=== PATIENT | female | born 1985 | race Caucasian/White ===

== ENCOUNTER 2021-04-08 15:47 | Emergency (ER) | payer OTHER ==
[2021-04-08 17:12] LABS: BASOPHIL 0.5 % (0-2); EOSINOPHIL 1.1 % (0-5); HCT 42.5 % (37.0-47.0); HGB 13.6 g/dl (12.5-16.0); MCH 26.5 pg (25.0-31.0); MCV 82.7 fL (78.0-100.0); MPV 11.1 fL (6.0-9.5); NEUTROPHIL 61.1 % (41-80); NRBC 0; PLT 420 K/uL (150-400); RBC 5.14 M/uL (4.20-5.40); RDW 16.1 % (11.5-14.0)
[2021-04-08 17:18] LABS: INR 1.08 (0.9-1.2); PROTHROMBIN TIME 13.4 SECONDS (11.8-13.4); PTT 26.3 SECONDS (24.4-34.7)
[2021-04-08 17:24] LABS: ALBUMIN 3.3 g/dL (3.4-5.0); BILIRUBIN - TOTAL 0.5 mg/dL (0.2-1.0); BUN/CREAT RATIO (CALC) 24.2 RATIO; C-REACTIVE PROTEIN 1.4 mg/dL (<=0.90); CREATININE 0.62 mg/dL (0.51-0.95); GLOBULIN (CALCULATION) 4.3 g/dL; POTASSIUM 3.8 mmol/L (3.5-5.1); TOTAL PROTEIN 7.6 g/dL (6.4-8.2)
== END 2021-04-08 17:10 | disposition other institution (70) ==
LOC: FER 15:47
PROVIDERS: Emergency Medicine
DX: M46.24 Osteomyelitis of vertebra, thoracic region (principal); M46.44 Discitis, unspecified, thoracic region; U07.1 COVID-19; Z88.0 Allergy status to penicillin
CPT/HCPCS: 36415; 80053; 84145; 85025; 85610; 85730; 86140; 87040; J2185; J3370; J7040; J7050; U0002